=== PATIENT | male | born 1960 | race Caucasian/White ===

== ENCOUNTER 2024-10-09 05:57 | Inpatient (IN) | payer MEDICAID ==
[2024-10-02 11:19] LABS: MEAN PLATELET VOLUME 7.8 FL (7.4-10.4); PRE OP HEMATOCRIT 44.1 % (42.0-52.0); PRE OP HEMOGLOBIN 14.9 g/dL (14.0-17.9); PRE OP PLATELET COUNT 236 X10'3 (140-440); PRE OP WHITE BLOOD COUNT 7.6 10'3 (4.8-10.8); RED CELL DISTRIBUTION WIDTH 14.5 % (11.5-14.5)
[2024-10-02 11:35] LABS: CREATININE 0.88 MG/DL (0.60-1.10); PRE OP ALT 33 U/L (30-65); PRE OP ANION GAP 5 (8-16); PRE OP AST 21 U/L (10-37); PRE OP BILIRUB, TOTAL 0.5 MG/DL (0.0-1.0); PRE OP GLUCOSE 65 MG/DL (70-104); PRE OP POTASSIUM 4.2 MMOL/L (3.4-5.1); PRE OP SODIUM 140 MMOL/L (135-145); TOTAL CARBON DIOXIDE 30.6 MMOL/L (24-32); eGFR 87 ML/MIN
--- NOTE | 2024-10-02 11:57 | RADIOLOGY REPORT ---
DI CHEST,TWO VIEWS CLINICAL HISTORY: PREOP, pain COMPARISON: None TECHNIQUE: Frontal and lateral view of the chest was obtained FINDINGS: Lines and Tubes: None Lungs: No focal consolidation. Pleura: No effusion. No pneumothorax. Cardiomediastinal contours: Unremarkable Bones: No acute osseous abnormality. IMPRESSION: No acute cardiopulmonary disease.
[~2024-10-09] VITALS: Ht 188 cm; Wt 96.9 kg
[2024-10-09] VITALS (19 sets, daily range): BP systolic 124–164; BP diastolic 79–93; PULSE 60–83; RESP 12–22; TEMP 96.9–97.9; O2SAT 92–97
[2024-10-09] MEDS: ceFAZolin 2gm/dext,iso 50mL 50 ML IV ONE (05:30)
[~2024-10-09 05:57] MED LIST: METF-436 PO; TAMS-55 PO
[2024-10-09] MEDS: ringers solution, lacted 1,000 ML IV SCH ×2 (06:42→18:09)
[2024-10-09] MEDS ORDERED: BUPIVAcaine 0.25% w/Epi /PF 30ml vial ONE (06:43)
[2024-10-09] MEDS ORDERED: INDOCYANINE GREEN 25 MG/10 ML VIAL IV ONE (06:43)
[2024-10-09] MEDS ORDERED: fluoroscein sod 10% (100mg/ml) 5ml vial ONE (06:43)
[2024-10-09] MEDS ORDERED: BUPIVACAINE liposomal/PF 13.3 MG/ML 10mL vial IM ONE (06:44)
[2024-10-09] MEDS ORDERED: fentaNYL /PF 50mcg/ml 5ml ampule ONE (07:16)
[2024-10-09] MEDS ORDERED: MIDAZolam 1 MG/ML 5ML VIAL ONE (07:16)
[2024-10-09] MEDS ORDERED: LIDOcaine 2% (20mg/ml) 5ml vial ONE (07:18)
[2024-10-09] MEDS ORDERED: rocuronium 10mg/ml inj IV ONE ×3 (07:18→11:03)
[2024-10-09] MEDS ORDERED: propofol inj 20 ML IV ONE (07:18)
[2024-10-09] MEDS ORDERED: ondansetron/PF 4mg/2ml inj ONE (07:18)
[2024-10-09] MEDS ORDERED: acetaminophen 1,000mg/100ml IV 100 ML IV ONE (07:32)
[2024-10-09] MEDS: BUPIVAcaine HCl 0.25%/EPInephrine 1:200,000 inj. 10 ML VIAL IM ONE (07:54)
[2024-10-09] MEDS ORDERED: labetalol 20mg/4ml (5mg/ml) syringe IV ONE (08:04)
[2024-10-09] MEDS ORDERED: hydrALAZINE 20mg/ml inj. ONE (08:07)
[2024-10-09] MEDS ORDERED: ketamine 50mg/5ml syringe IV PRN (08:35)
[2024-10-09] MEDS ORDERED: hydrALAZINE 20mg/ml inj. IV PRN (08:35)
[2024-10-09] MEDS ORDERED: fentaNYL/PF 50MCG/1 ML 2ML syringe IV PRN (08:35)
[2024-10-09] MEDS ORDERED: ondansetron/PF 4mg/2ml inj IV PRN (08:35)
[2024-10-09] MEDS ORDERED: albumin (Human) 5% 250ml 250 ML IV ONE ×2 (09:44→10:00)
[2024-10-09] MEDS ORDERED: albumin (Human) 5% 250ml 750 ML IV ONE (09:59)
[2024-10-09] MEDS ORDERED: HYDROcodone/acetaminophen 5mg/325mg tablet PO PRN (12:15)
[2024-10-09] MEDS: fentaNYL/PF 50MCG/1 ML 2ML syringe IV PRN (12:20)
[2024-10-09] MEDS: labetalol 20mg/4ml (5mg/ml) syringe IV PRN (12:23)
--- NOTE | 2024-10-09 12:28 | OPERATIVE REPORT ---
Operative Report Providers to ~ Date of Procedure: Oct 09, 2024 Pre-Operative Diagnosis: prostate cancer Post-Operative Diagnosis SAME as PRE-Op Procedure Performed robotic assisted laparoscopic radical prostatectomy Surgeon: Raina Stock MD Registered Associate Bimal Damian NP Type of Anesthesia: General Findings: right lower quadrant adhesions from prior appendectomy dense adhesion between the posterior aspect of the prostate and rectum prostate approximately 50 grams Complications none Estimated Blood Loss: 200cc Specimen Removed: prostate with vas deferens and seminal vesicles Description of Procedure: Informed consent was obtained. Patient was taken to the OR and placed in supine position. General anesthesia was administered. His abdomen and genitalia were prepped and draped in usual sterile fashion. A conner catheter was placed into the bladder and balloon was inflated with 15cc sterile water. A small incision was made in the midline superior to the umbilicus. Dissection was taken down to the fascia. Two 0 vicryl stay sutures were placed into the fascia. The fascia was entered. The peritoneum was then entered sharply with metzenbaum scissors. A 12mm Andrea trocar was placed at the umbilicus, and secur ed to the fascia using the stay sutures. The abdomen was then insufflated. The 0 degree laparoscope was placed. There were mild adhesions in the right lower quadrant from prior appendectomy Three additional 8 mm robotic trocars were placed for triangulation of the prostate, and a 12mm per diem physical therapist assistant port was placed at the right lower quadrant. The patient was placed in Trendelenburg position. The da Lesly XI robot was then docked in the typical fashion. The right lower quadrant adhesions were taken down carefully with scissors. An incision was made in the peritoneum posterior to the prostate. The bilateral vas deferens and seminal vesicles were dissected free from surrounding tissue. The vas deferens were transected bilaterally. An incision was then made in Ganesh nvilliers fascia and the space between the rectum and the prostate was developed. There was dense adhesion between the posterior aspect of the prostate and rectum, with difficulty carrying out dissection towards the apex of the prostate. The space of Retzius was then developed by incising lateral to the medial umbilical ligaments and dividing the urachus. The prostate was defatted anteriorly. The endopelvic fascia was incised bilaterally. The dorsal vein complex was then ligated using 2-0 PDS suture. A Conner catheter was seated against the bladder neck to delineate the bladder neck, and the anterior bladder neck was divided. Once this was accomplished, the Conner catheter was brought into the anterior operative field and used for traction of the prostate. The posterior bladder neck was then divided and the vas and seminal vesicles were identified. The vas and seminal vesicles were grasped to retract the prostate anteriorly. Bilateral nerve sparing was performed by incising the lateral prostatic fascia and sweeping the neurovascular bundles off the prostate laterally. Using the Harmonic LigaSure device, the right and left prostatic pedicles were divided. This was carried out to the apex of the prostate. The posterior plane was densely adherent to the rectum, so dissection took longer than usual in order to carefully dissect the prostate from the rectum. The apical tissues were then off the apical surface of the prostate. The urethra was divided sharply preserving an adequate urethral stump. A vesicourethral anastomosis was then carried out in a running fashion with 3-0 V-Loc suture. At completion of the anastomosis, a new 20-Slovak Conner catheter was placed with 15 mL sterile water in the balloon. The Conner was then irrigated with 180 mL of sterile water and the anastomosis was felt to be watertight. The prostate was placed in an EndoCatch bag for removal. A 15Fr TOSHIA drain was then placed in the space of Retzius through the lateral left sided 8 mm robotic trocar. Drain secured in place using 2-0 silk suture. The specimen was then extracted through the midline after extension of this incision. The fascia was closed in a running fashion with 0 Vicryl suture. Skin was closed with subcuticular 4-0 Monocryl. Dermabond was placed over the skin incisions. The patient tolerated the procedure well without complication. He was transferred to the recovery room in stable condition. Plan: TOSHIA drain to be removed prior to discharge. Conner catheter will be removed in about 7-10 days. Counts repoted as correct: Yes RAINA STOCK MD Oct 09, 2024 12:28
[2024-10-09] MEDS: morphine 4 MG/ML inj SYRINge IV PRN (12:36)
[2024-10-09] MEDS: HYDROmorphone/PF 0.2 MG/ML SYRINGE IV PRN (13:18)
[2024-10-09] MEDS: ondansetron/PF 4mg/2ml inj IV PRN (14:15)
[2024-10-09] MEDS ORDERED: glucagon, human recombinant 1mg kit SUBCUT PRN (15:45)
[2024-10-09] MEDS ORDERED: dextrose 50%-water 50ml dispensing syringe IV PRN ×2 (15:45)
[2024-10-09] MEDS ORDERED: DEXTROSE 15 GM of carb/4 tabs (each vial/BOTTLE has 4 tablets) PO PRN ×2 (15:45)
[2024-10-09] MEDS: INSULIN LISPRO 100 UNIT/ML INSULN.PEN MULTI-DOSE SQ SCH (17:00)
[2024-10-09] MEDS: normal saline 1000ml 1,000 ML IV SCH (17:08)
[2024-10-09] MEDS: ceFAZolin/D5W- 1GM premix 50 ML IV SCH (17:50)
[2024-10-10] VITALS (7 sets, daily range): BP systolic 103–156; BP diastolic 67–88; PULSE 58–74; RESP 16–19; TEMP 97–98.2; O2SAT 20–97
[2024-10-10 04:37] LABS: MEAN PLATELET VOLUME 7.9 FL (7.4-10.4); RED CELL DISTRIBUTION WIDTH 14.1 % (11.5-14.5)
[2024-10-10 04:51] LABS: CREATININE 0.75 MG/DL (0.60-1.10); TOTAL CARBON DIOXIDE 28.5 MMOL/L (24-32); eCRCL 117 ML/MIN; eGFR > 90 ML/MIN
[2024-10-10] MEDS: polyethylene glycol 3350 17gm powd pack PO SCH (08:23)
[2024-10-10] MEDS: docusate sod 100mg capsule PO SCH (08:23)
[2024-10-10] MEDS: HYDROcodone/acetaminophen 10/325mg tab PO PRN (11:50)
[2024-10-10] MEDS: ibuprofen tablet 400 MG TABLET PO PRN (15:24)
--- NOTE | 2024-10-10 18:25 | PROGRESS NOTE ---
Progress Progress Note: Complains of abdominal pain. Requiring PO and IV pain medications overnight. N/V overnight. Small flatus, no BM. TOSHIA drain with minimal serosanguinous output. Conner clear yellow urine. Not OOB yet. Problem\Assessment\Plan Problems/Diagnosis: (1) Prostate cancer Assessment & Plan: 64yo M with prostate cancer s/p robotic prostatectomy 10/09/24 - AFVSS - Labs reviewed. Monitor daily - Continue conner - Continue TOSHIA for now. Likely remove TOSHIA tomorrow morning if output remains low - Pain control - Bowel regimen - Clear liquids for now, advance as tolerated when N/V resolves - OOB/ambulate, PT, incentive spirometer Results/Orders Result Diagram: 10/10/24 0422 10/10/24 0422 Dietary Evaluation Comments: S 10/14 Will provide full nutrition assessment on above date. LANDRY STOCK MD Oct 10, 2024 18:25
[2024-10-11 04:50] LABS: MEAN PLATELET VOLUME 7.9 FL (7.4-10.4); RED CELL DISTRIBUTION WIDTH 14.0 % (11.5-14.5)
[2024-10-11 05:05] LABS: CREATININE 0.70 MG/DL (0.60-1.10); TOTAL CARBON DIOXIDE 29.3 MMOL/L (24-32); eCRCL 126 ML/MIN; eGFR > 90 ML/MIN
[2024-10-11 06:00] VITALS: BP 141/77; PULSE 61; RESP 20; TEMP 97.7; O2SAT 97
--- NOTE | 2024-10-11 08:36 | DISCHARGE SUMMARY ---
Discharge Summary Providers to CC ~ Discharge Summary Admission Diagnosis: prostate cancer Hospital Course DATE OF ADMISSION: 10/09/24 DATE OF DISCHARGE: 10/11/24 Discharge Diagnosis\Comment: prostate cancer Operations\Procedures: robotic radical prostatectomy Consultants: none Complications: none Condition on DC: Stable Discharge Summary: Patient admitted following robotic radical prostatectomy. He had significant abdominal/incisional pain requiring PO and IV pain medications. He had nausea and vomiting overnight following surgery. His labs remained stable. TOSHIA output w as minimal and was removed on POD 2. His diet was slowly advanced. He ambulated independently prior to discharge. He was discharged home with conner. *Problems/Diagnosis: (1) Prostate cancer Assessment & Plan: 64yo M with prostate cancer s/p robotic prostatectomy 10/09/24 - Labs reviewed, stable - TOSHIA output minimal, removed - Continue conner until follow up appointment in office - Diet as tolerated - Discharge home today Total Time Spent on D/C: Up to 30 Minutes LANDRY STOCK MD Oct 11, 2024 08:36
[2024-10-11 10:00] VITALS: BP 130/82; PULSE 69; RESP 14; TEMP 98.4; O2SAT 94
[2024-10-11 17:14] VITALS: RESP 16
== END 2024-10-11 17:36 | disposition home or self-care (01) | DRG 484 ==
LOC: PAS 05:57 → OBSVTOIN 12:20 → PAS IN 12:20 → SUR 3N 13:49
PROVIDERS: ADMIT Student in an Organized Health Care Education/Training Program; ATTEND Student in an Organized Health Care Education/Training Program
PROC: 8E0W4CZ Robotic Assisted Procedure of Trunk Region, Percutaneous Endoscopic Approach (ICD-10-PCS; 2024-10-09)
PROC: 0V9030Z Drainage of Prostate with Drainage Device, Percutaneous Approach (ICD-10-PCS; 2024-10-09)
PROC: 0VT04ZZ Resection of Prostate, Percutaneous Endoscopic Approach (ICD-10-PCS; principal; 2024-10-09 07:14)
DX: C61 Malignant neoplasm of prostate (principal); K66.0 Peritoneal adhesions (postprocedural) (postinfection)
CPT/HCPCS: 36415; 71046; 80048; 80053; 82948; 83036; 85025; 86885; 86900; 86901; 87081; 94760; 97116; 97161; 97530; A4215; A4333; A4338; A4357; A4358; A4615; A4618; A4620; A5200; A6449; C1758; G0378; J0131; J0360; J0665; J0666; J0690; J1100; J1171; J1815; J2003; J2250; J2270; J2405; J2704; J3010; J3490; J7030; J7120; P9045